=== PATIENT | female | born 1995 | race Caucasian/White ===

== ENCOUNTER → 2020-03-31 | Outpatient (REF) | payer OTHER ==
[2020-05-03 09:49] LABS: BASO % 0.2 % (0.0-1.0); EOS % 0.4 % (0.0-3.0); HEMATOCRIT 38.1 % (36.0-47.0); HEMOGLOBIN 12.6 g/dl (12.0-15.5); LYMPH # 1.1 10^3/uL (1.5-5.0); LYMPH % 11.2 % (24.0-44.0); MEAN CORPUSCULAR HEMOGLOBIN 31.2 pg (27.0-33.0); MEAN CORPUSCULAR HGB CONC 33.1 g/dl (32.0-36.5); MEAN CORPUSCULAR VOLUME 94.3 fl (80.0-96.0); MONO # 0.7 10^3/uL (0.0-0.8); MONO % 6.9 % (0.0-5.0); NEUTROPHILS # 7.9 10^3/uL (1.5-8.5); NEUTROPHILS % 80.9 % (36.0-66.0); PLATELET COUNT, AUTOMATED 260 10^3/uL (150-450); RED BLOOD COUNT 4.04 10^6/uL (4.00-5.40); WHITE BLOOD COUNT 9.8 10^3/uL (4.0-10.0)
[2020-05-11 13:55] LABS: CHLAMYDIA DNA AMPLIFICATION NEGATIVE (NEGATIVE); GC DNA AMPLIFICATION NEGATIVE (NEGATIVE)
[2020-05-15 14:11] LABS: HEPATITIS C VIRUS ABY INDEX 0.2 INDEX (<0.8); HIV 1&2 SCREEN CENTAUR NEGATIVE (NEGATIVE)
== END ==
LOC: M SFHCWAGY 11:37
PROVIDERS: ATTEND Advanced Practice Midwife
DX: Z12.4 Encounter for screening for malignant neoplasm of cervix (principal)
CPT/HCPCS: 36415; 85025; 86762; 86803; 86850; 86900; 86901; 87086; 87340; 87389; 87491; 87591; G0123

== ENCOUNTER → 2020-05-06 | Outpatient (CLI) | payer OTHER ==
--- NOTE | 2020-05-20 08:17 | REP ---
COMPLETE OBSTETRICAL ULTRASOUND: 05/06/20 CLINICAL: Complete anatomical assessment. FINDINGS: Ultrasound demonstrates a single live intrauterine in cephalic presentation. Placenta noted posteriorly and grade 1 without evidence for placenta previa or abruption. Amniotic fluid volume is normal. The cervix measures 4.1cm in length and appears closed. Gestational age by LMP 21 weeks 2 days with estimated date of delivery 09/14/20. Gestational age by current measurements 21 weeks 4 days with estimated date of delivery 09/12/19. HEART RATE: 140 bpm HC/AC Ratio: 1.21 Estimated weight: 408g (43rd percentile) Anatomical assessment demonstrates normal cranium, choroid plexus, ventricles, cerebellum/posterior fossa, facial features, four chamber heart/ventricular outflow tracts, diaphragm, stomach, three vessel cord/cord insertion, kidneys/bladder, spine and extremities. IMPRESSION: Single live intrauterine in cephalic presentation demonstrating appropriate interval growth and estimated weight. Anatomic assessment is complete and normal. No gross abnormalities are identified. MTDD
== END ==
LOC: M WHC 09:10
PROVIDERS: ATTEND Advanced Practice Midwife
DX: Z34.02 Encounter for supervision of normal first pregnancy, second trimester (principal); Z36.87 Encounter for antenatal screening for uncertain dates; Z3A.21 21 weeks gestation of pregnancy

== ENCOUNTER → 2020-06-02 | Outpatient (REF) | payer OTHER | LOC: M PLALAB 10:02 | PROVIDERS: ATTEND Obstetrics & Gynecology | DX: Z53.9 Procedure and treatment not carried out, unspecified reason (principal); Z34.92 Encounter for supervision of normal pregnancy, unspecified, second trimester; Z3A.25 25 weeks gestation of pregnancy ==

== ENCOUNTER → 2020-06-15 | Outpatient (REF) | payer OTHER ==
[2020-06-15 14:05] LABS: HEMOGLOBIN 11.9 g/dl (12.0-15.5); MEAN CORPUSCULAR HEMOGLOBIN 31.2 pg (27.0-33.0); MEAN CORPUSCULAR HGB CONC 32.2 g/dl (32.0-36.5); MEAN CORPUSCULAR VOLUME 96.9 fl (80.0-96.0); PLATELET COUNT, AUTOMATED 234 10^3/uL (150-450); RED BLOOD COUNT 3.82 10^6/uL (4.00-5.40); WHITE BLOOD COUNT 10.9 10^3/uL (4.0-10.0)
[2020-06-15 14:24] LABS: GLUCOSE CHALLENGE TEST 1 HOUR 104 MG/DL (LESS THAN 140)
== END ==
LOC: M PLALAB 09:16
PROVIDERS: ATTEND Obstetrics & Gynecology
DX: Z3A.25 25 weeks gestation of pregnancy (principal)